=== PATIENT | male | born 2000 | race Caucasian/White ===

== ENCOUNTER 2024-01-06 07:12 | Emergency (ER) | payer OTHER ==
[~2024-01-06] VITALS: Ht 180.3 cm; Wt 70.3 kg
[2024-01-06 08:29] LABS: BASOPHILS % (AUTO) 0.3 % (0.0-2.0); EOSINOPHILS # (AUTO) 0.1 K/uL (0.0-0.7); EOSINOPHILS % (AUTO) 0.8 % (0.0-6.0); HEMATOCRIT 43 % (39-51); HEMOGLOBIN 14.8 g/dL (13.5-17.5); LYMPHOCYTES # (AUTO) 2.1 K/uL (0.8-4.8); LYMPHOCYTES % (AUTO) 24.5 % (20.0-44.0); MEAN CORPUSCULAR HEMOGLOBIN 30 PG (26.0-33.0); MEAN CORPUSCULAR HGB CONC 34 g/dl (31.0-36.0); MEAN CORPUSCULAR VOLUME 89 fL (80-96); MONOCYTES # (AUTO) 0.8 K/uL (0.1-1.30); MONOCYTES % (AUTO) 9.4 % (2.0-12.0); NEUTROPHILS # (AUTO) 5.4 K/uL (1.8-8.9); PLATELET COUNT (AUTO) 218 K/uL (150-450); RED BLOOD CELL COUNT(AUTO) 4.91 MIL/uL (4.5-6.0); RED CELL DISTRIBUTION WIDTH 12.4 % (11.5-15.0); WHITE BLOOD COUNT (AUTO) 8.4 K/uL (4.3-11.0)
[2024-01-06] MEDS ORDERED: IOHEXOL-300 100 ML VIAL IV ONE (08:36)
[2024-01-06] MEDS ORDERED: IV NS 0.9% 250 ML IV ONE (08:36)
[2024-01-06 08:43] LABS: ALBUMIN 4.7 g/dL (3.4-5.0); BILIRUBIN,DIRECT 0.1 mg/dL (0.0-0.2); BILIRUBIN,TOTAL 0.4 mg/dL (0.2-1.0); CALCIUM, SERUM 9.1 mg/dL (8.5-10.1); CREATININE 0.9 mg/dL (0.6-1.3); POTASSIUM 3.6 mmol/L (3.5-5.1); TOTAL PROTEIN, SERUM 7.8 g/dL (6.4-8.2)
[2024-01-06] MEDS ORDERED: KETOROLAC TROMETHAMINE INJ 30 MG/ML VIAL ONE (10:23)
[2024-01-06] MEDS: KETOROLAC TROMETHAMINE INJ 30 MG/ML VIAL IV ONE (10:30)
[2024-01-06 12:25] VITALS: BP 128/81; TEMP 98.3; O2SAT 100
== END 2024-01-06 11:45 | disposition home or self-care (01) ==
LOC: ER 07:45
DX: R10.84 Generalized abdominal pain (principal); F17.200 Nicotine dependence, unspecified, uncomplicated; R11.10 Vomiting, unspecified
CPT/HCPCS: 99285; 74177; 96374; 85025; 80048; 83690; 80076; 36415; J1885; J7050; Q9967